=== PATIENT | female | born 1975 | race Two or more races ===

== ENCOUNTER 2019-06-03 13:27 | Emergency (ER) | payer SELFPAY ==
[~2019-06-03] VITALS: Ht 152.4 cm; Wt 54.5 kg
[2019-06-03] MEDS ORDERED: FAMOTIDINE 20 MG TABLET. PO ONE (14:15)
--- NOTE | 2019-06-03 14:24 | EKG ---
[facility] [address] [place] [address] Test Date: 2019-06-03 Test Time: 13:37:25 Pat Name: NORA LO Department: Room: Gender: F Director Digital Sales: : 1975 Requested By: YANIRA STRATTON Order Number: [id number] Reading MD: Sami Newton Measurements Intervals Rogers Rate: 83 P: 59 MS: 146 QRS: 23 QRSD: 96 T: 34 QT: 324 QTc: 385 Interpretive Statements SINUS RHYTHM NON SPECIFIC T ABNORMALITY Electronically Signed On 06-05-2019 10:03:18 CDT by Sami Newton
--- NOTE | 2019-06-03 14:37 | PHYS DOC ---
Past Medical History Past Medical History: Diabetes-Type II Past Surgical History: Cholecystectomy, Smoking Status: Never Smoker Alcohol Use: None General Adult EDM: Chief Complaint: CHEST PAIN HPI: HPI: Patient is a 43 year old female with history of diabetes type 2, cholecystectomy, who presents to the ED today with multiple complaints. Patient is complaining of 10 out of 10 substernal chest pain radiating to her back that has been going on intermittently for 2 weeks. Patient reports when the pain occurs she is short of breath and believes she could be having coronavirus. 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 She is also complaining of diarrhea for 3 weeks with no abdominal pain, nausea or vomiting. Patient denies any bloody stools. Denies any fever. She is very nervous about coronavirus, she has spent an incredible amount of time with me on the [place] language line negotiating to see if she can get to the short test. She states she had already stopped somewhere else to get the test but they refused to do it because she does not meet criteria. Denies any fever, cough or congestion. Review of Systems: Review of Systems: Constitutional: Denies fever or chills. [] Eyes: Denies change in visual acuity. [] HENT: Denies nasal congestion or sore throat. [] Respiratory: Denies cough or shortness of breath. [] Cardiovascular: Reports chest pain. GI: Reports diarrhea. Denies abdominal pain, nausea, vomiting, bloody stools : Denies dysuria. [] Musculoskeletal: Denies back pain or joint pain. [] Integument: Denies rash. [] Neurologic: Denies headache, focal weakness or sensory changes. [] Endocrine: Denies polyuria or polydipsia. [] Lymphatic: Denies swollen glands. [] Psychiatric: Denies depression or anxiety. [] Heart Score: HEART Score for Chest Pain: HEART Score for Chest Pain Response (Comments) Value History Slighlty/Non-Suspicious 0 ECG Normal 0 Age < 45 0 Risk Factors 1 or 2 Risk Factors 1 Troponin < Normal Limit 0 Total 1 Risk Factors: Risk Factors: DM, Current or recent (<one month) smoker, HTN, HLP, family history of CAD, obesity. Risk Scores: Score 0 - 3: 2.5% MACE over next 6 weeks - Discharge Home Score 4 - 6: 20.3% MACE over next 6 weeks - Admit for Clinical Observation Score 7 - 10: 72.7% MACE over next 6 weeks - Early Invasive Strategies Current Medications: Current Medications Medications (Trade) Dose Ordered Sig/Aguilar Start Time Stop Time Status Last Admin Dose Admin Famotidine (Pepcid) 20 mg 1X ONCE 06/03/19 14:15 06/03/19 14:25 DC Allergies: Allergies: Allergies Coded Allergies Type Severity Reaction Last Updated Verified No Known Drug Allergies 06/03/19 No Physical Exam: PE: Constitutional: Well developed, well nourished, no acute distress, non-toxic appearance. [] HENT: Normocephalic, atraumatic, bilateral external ears normal, oropharynx moist, no oral exudates, nose normal. [] Eyes: PERRLA, EOMI, conjunctiva normal, no discharge. [] Neck: Normal range of motion, no tenderness, supple, no stridor. [] Cardiovascular:Heart rate regular rhythm, no murmur [] Lungs & Thorax: Bilateral breath sounds clear to auscultation [] Abdomen: Bowel sounds normal, soft, no tenderness, no masses, no pulsatile masses. [] Skin: Warm, dry, no erythema, no rash. [] Back: No tenderness, no CVA tenderness. [] Extremities: No tenderness, no cyanosis, no clubbing, ROM intact, no edema. [] Neurologic: Alert and oriented X 3, normal motor function, normal sensory function, no focal deficits noted. [] Psychologic: Affect normal, judgement normal, mood normal. [] Current Patient Data: Vital Signs: Vital Signs Date Time Temp Pulse Resp B/P (MAP) Pulse Ox O2 Delivery O2 Flow Rate FiO2 06/03/19 13:48 99.0 99 16 140/77 (98) 98 Room Air 99.0 EKG: EKG: [] Radiology/Procedures: Radiology/Procedures: []PROCEDURE: PORTABLE CHEST 1V PORTABLE CHEST 1V History: Chest pain Comparison: None. Findings: 2 AP portable views of the chest are submitted. There is suboptimal exposure for both exams. There is no significant dependent pleural fluid, obvious pneumothorax, or significant lobar consolidation. Heart size is within normal limits. Impression: 1. Exam is somewhat limited due to suboptimal exposure, no obvious abnormality identified. Electronically signed by: Mason Enamorado MD (06/03/2019 2:56 PM) [id number] DICTATED and SIGNED BY: MASON ENAMORADO MD DATE: 06/03/19 1456 Course & Med Decision Making: Course & Med Decision Making Pertinent Labs and Imaging studies reviewed. (See chart for details) This is a 43-year-old female patient presenting to the ED today complaining of diarrhea for 3 weeks and substernal chest pain for 2 weeks. Patient has spent an incredible amount of time asking for the short test. She does not meet ED criteria for the testing. She reports she already stopped at a different facility and they told her she does not need criteria for the testing hence came to the ED. 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 She has no cough or fever. Chest x-ray interpreted by radiologist as negative for any acute findings, labs are negative for any acute findings. UA is negative, drug screen is negative. Heart score 1. Patient was discharged home. Follow-up with primary care doctor in 1 to 2 weeks. Her diarrhea could be related to cholecystectomy. Provided GI for follow-up. Dragon Disclaimer: DragConstruct Disclaimer: This electronic medical record was generated, in whole or in part, using a voice recognition dictation system. Departure Departure Impression: Primary Impression: Chest pain Qualified Codes: R07.9 - Chest pain, unspecified Additional Impression: Diarrhea Qualified Codes: R19.7 - Diarrhea, unspecified Disposition: HOME, SELF-CARE Condition: STABLE Referrals: NO PCP (PCP) follow up with your docto in 1 week BARBRA OLIVO MD follow up in 1 week Patient Instructions: Chest Pain (Nonspecific)-Brief, Diarrhea Additional Instructions: You were evaluated in the emergency room, your cardiac work-up is negative. The rest of your labs are negative for any acute findings. Follow-up with the doctor provided doctor or your own doctor in the next 1 week. Scripts Diphenoxylate Hcl/Atropine (LOMOTIL TABLET) 1 Each Tablet 1 TAB PO TID, #30 TAB Prov: MUTUNGA,YANIRA COORDINATE MEASURING MACHINE OPERATOR 06/03/19 Famotidine (FAMOTIDINE) 20 Mg Tablet 20 MG PO DAILY, #10 TAB Prov: MUTUNGA,YANIRA COORDINATE MEASURING MACHINE OPERATOR 06/03/19 YANIRA STRATTON APRN Jun 03, 2019 14:37
[2019-06-03 14:38] LABS: BASO # 0.1 x10^3/uL (0.0-0.2); BASO % 1 % (0-3); EOS % 0 % (0-3); HEMATOCRIT 40.4 % (36.0-47.0); HEMOGLOBIN 13.7 g/dL (12.0-15.5); LYMPH # 1.4 x10^3/uL (1.0-4.8); LYMPH % 14 % (24-48); MEAN CORPUSCULAR HEMOGLOBIN 31 pg (25-35); MEAN CORPUSCULAR HGB CONC 34 g/dL (31-37); MEAN CORPUSCULAR VOLUME 90 fL (79-100); MONO # 0.4 x10^3/uL (0.0-1.1); MONO % 4 % (0-9); NEUT % 80 % (31-73); PLATELET COUNT 245 x10^3/uL (140-400); RED BLOOD COUNT 4.48 x10^6/uL (3.50-5.40); WHITE BLOOD COUNT 9.9 x10^3/uL (4.0-11.0)
--- NOTE | 2019-06-03 14:59 | RAD ---
PORTABLE CHEST 1V History: Chest pain Comparison: None. Findings: 2 AP portable views of the chest are submitted. There is suboptimal exposure for both exams. There is no significant dependent pleural fluid, obvious pneumothorax, or significant lobar consolidation. Heart size is within normal limits. Impression: 1. Exam is somewhat limited due to suboptimal exposure, no obvious abnormality identified. Electronically signed by: Kulwinder Vargas MD (06/03/2019 2:56 PM) [id number]
[2019-06-03 15:11] VITALS: BP 111/67
[2019-06-03 15:16] LABS: CREATININE 0.8 mg/dL (0.6-1.0); GFR 78.7; POTASSIUM 3.8 mmol/L (3.5-5.1)
[2019-06-03 15:30] LABS: BILIRUBIN,URINE NEGATIVE (NEG); CLARITY,URINE CLEAR; NITRITE,URINE NEGATIVE (NEG); PROTEIN,URINE NEGATIVE (NEG-TRACE); UROBILINOGEN,URINE 0.2 mg/dL (0.2 mg/dL)
[2019-06-03 15:35] LABS: ALBUMIN 3.7 g/dL (3.4-5.0); MAGNESIUM 2.2 mg/dL (1.8-2.4); TOTAL BILIRUBIN 0.4 mg/dL (0.2-1.0); TOTAL PROTEIN 7.3 g/dL (6.4-8.2)
[2019-06-03 15:36] LABS: COLOR,URINE YELLOW
[2019-06-03 15:37] LABS: BACTERIA,URINE FEW /HPF (0-FEW); RBC,URINE OCC /HPF (0-2); SQUAMOUS EPITHELIAL CELL,UR MOD /LPF; WBC,URINE OCC /HPF (0-4)
[2019-06-03 15:41] LABS: BARBITURATES NEG (NEG); BENZODIAZEPINES NEG (NEG); CANNABINOIDS NEG (NEG); COCAINE NEG (NEG); METHADONE NEG (NEG); OPIATES NEG (NEG); PHENCYCLIDINE NEG (NEG)
[2019-06-03 15:43] LABS: AMPHETAMINE/METHAMPHETAMINE NEG (NEG)
[2019-06-03] MEDS ORDERED: FAMO20TA5 PO (16:32)
[2019-06-03] MEDS ORDERED: DIPH1TAB PO (16:32)
== END 2019-06-03 16:50 | disposition home or self-care (01) ==
LOC: ER 13:27
DX: R07.89 Other chest pain (principal); R19.7 Diarrhea, unspecified; R06.02 Shortness of breath; E11.9 Type 2 diabetes mellitus without complications; Z90.49 Acquired absence of other specified parts of digestive tract; Z98.890 Other specified postprocedural states
CPT/HCPCS: 36415; 71045; 80053; 80307; 81001; 82553; 82728; 83690; 83735; 83880; 84443; 84484; 85025; 85379; 93005; 99285